=== PATIENT | female | born 1960 | race African-American/Black ===

== ENCOUNTER 2017-10-15 08:54 | Outpatient (CLI) | payer OTHER ==
--- NOTE | 2017-10-15 12:17 | MRI ---
EXAM: MR ANGIOGRAM OF THE [place]: HISTORY: Dizziness. COMPARISON: None. CORRELATION: CT angiogram of the head 06/04/17. TECHNIQUE: MR angiogram of the [place] was performed in the axial plane utilizing 3D [id number]-[id number] marcelo ging. Maxim-intensity projection images were submitted for interpretation. FINDINGS: The distal cervical carotid arteries have symmetric flow-related signal. The intracranial carotid ar teries also have symmetric flow-related signal. Anterior Circulation: Symmetric flow-related signal in the A1 and M1 segments. Symmetric flow-related signal in the proxim al A2 segments and proximal MCA branches. Posterior Circulation: Posterior circulation demonstrates codominant vertebral arteries. Limited evaluation of both PICA ar loc origins. Nevertheless, both PICA artery origins are grossly unremarkable. Both vertebral arter ies supply a normal-appearing basilar artery. Appropriate flow-related signal. Symmetric flow-relat ed signal is in the left and right P1 segments. IMPRESSION: Unremarkable MR angiogram of the [place]. POS: [facility]
--- NOTE | 2017-10-15 12:24 | MRI ---
EXAM: MR ANGIOGRAM OF THE NECK: HISTORY: Dizziness. COMPARISON: None. CORRELATION: CT Angiogram of the neck 06/04/17. TECHNIQUE: Axial 2D and 3D flij-la-neleyp imaging was performed. Maximum-intensity projection images are submit bharath for interpretation. FINDINGS: Based on the axial 2D and 3D [id number] images, evaluation of the origin of both carotid and vert ebral arteries is limited. Visualized cervical carotid and vertebral arteries have appropriate flow-r elated signal. No significant stenosis. Maximum-intensity projection images do not demonstrate any abnormality. IMPRESSION: Unremarkable cervical carotid and vertebral arteries. There appears to be appropriate flow-related s ignal. POS: [facility]
--- NOTE | 2017-10-15 13:07 | MRI ---
MRI BRAIN WITH AND WITHOUT CONTRAST: HISTORY: 57-year-old female with C71.9, malignant neoplasm of brain, as written in the order. History provided by lead medical technologist is dizziness and right leg weakness for approximately one yea r. TECHNIQUE: Multiple sequences obtained in axial, sagittal, and coronal planes; pre and post IV injection of gado linium-based contrast agent: 20 ml of MultiHance. FINDINGS: The ventricles are normal in size and configuration. There is no restricted diffusion, abnormal intr aaxial enhancement, mass, midline shift or any other mass effect, recent intraaxial hemorrhage, or ex traaxial fluid collection. There are a few scattered punctate T2-hyperintensities in the cerebral whi te matter consistent with mild chronic ischemic white matter changes due to mild microvascular athero sclerosis. There is total opacification of the left sphenoid air cell and adjacent left posterior eth moid air cells; and near total opacification of the left maxillary sinus. Despite the given history o f malignant neoplasm of brain, there are no craniostomy changes. IMPRESSION: 1. Mild chronic ischemic white matter changes. 2. Otherwise no major pathology of the brain identified. 3. Occlusive left paranasal sinusopathy. darwin POS: [facility]
== END 2017-10-15 08:55 | disposition home or self-care (01) ==
LOC: MRI 08:54
PROVIDERS: ATTEND Neurological Surgery
DX: C71.9 Malignant neoplasm of brain, unspecified (principal); R42 Dizziness and giddiness; G93.89 Other specified disorders of brain; J32.8 Other chronic sinusitis
CPT/HCPCS: 70544; 70547; 70553

== ENCOUNTER 2018-01-06 10:17 | Emergency (ER) | payer OTHER ==
[2018-01-06 11:53] LABS: #Lymphocytes 1.5 thou/uL (1.20-3.40); #Monocytes 0.4 thou/uL (0.11-0.59); #Neutrophils 7.2 thou/uL (1.40-6.50); %Basophils 0.2 % (0.0-1.0); %Eosinophils 0.5 % (0.0-10.0); %Lymphocytes 16.6 % (21.0-51.0); %Monocytes 4.5 % (0.0-10.0); %Neutrophils 78.2 % (42.0-75.0); Hemoglobin 10.9 g/dL (12.0-16.0); Mean Corpuscular HGB CONC 30.8 g/dL (32.0-36.0); Mean Corpuscular Hemoglobin 26.5 pg (27.0-31.0); Mean Corpuscular Volume 85.9 fl (81.0-99.0); Mean Platelet Volume 8.8 fL (7.4-10.4); Platelet Count 222 thou/uL (130-400); RBC Distribution Width 13.6 % (11.5-14.5); Red Blood Cell (RBC) Count 4.13 mill/uL (4.20-5.40); White Blood Cell (WBC) Count 9.2 thou/uL (4.8-10.8)
[2018-01-06 12:13] LABS: ALT (SGPT) 12 U/L (8-55); AST (SGOT) 16 U/L (5-34); Albumin 4.1 g/dL (3.5-5.0); Alkaline Phosphatase 76 U/L (40-150); Anion Gap 13 mmol/L (10-20); BUN (Urea Nitrogen) 19 mg/dL (9.8-20.1); Bilirubin, Total 0.3 mg/dL (0.2-1.2); CK (CPK) 74 U/L (29-168); Calc. Creatinine Clearance 0 mL/min (70-130); Calcium 9.1 mg/dL (7.8-10.44); Carbon Dioxide 21 mmol/L (22-29); Chloride 107 mmol/L (98-107); Estimated GFR-MDRD 63; Globulin 2.9 g/dL (2.4-3.5); Glucose 111 mg/dL (70-105); Potassium 3.8 mmol/L (3.5-5.1); Sodium 137 mmol/L (136-145)
[2018-01-06 12:17] LABS: CKMB 0.9 ng/mL (0-6.6); Troponin I Less than 0.010 ng/mL (< 0.028)
== END 2018-01-06 15:25 | disposition home or self-care (01) ==
LOC: ERS 10:17
DX: E86.0 Dehydration (principal); M79.7 Fibromyalgia; I10 Essential (primary) hypertension; Z79.899 Other long term (current) drug therapy
CPT/HCPCS: 36415; 80053; 82553; 84484; 85025; 99284

== ENCOUNTER 2018-06-09 08:17 | Outpatient (CLI) | payer OTHER ==
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
== END 2018-06-09 08:18 | disposition home or self-care (01) ==
LOC: TBSIIMAG 08:17
PROVIDERS: ATTEND Specialist
DX: M51.17 Intervertebral disc disorders with radiculopathy, lumbosacral region (principal)
CPT/HCPCS: 72148

== ENCOUNTER 2018-09-25 07:37 | Outpatient (CLI) | payer OTHER ==
--- NOTE | 2018-09-25 08:56 | MRI ---
MRI OF LEFT SHOULDER PERFORMED WITHOUT CONTRAST ENHANCEMENT: Date: 09/25/18 HISTORY: Left shoulder pain, limited range of motion. FINDINGS: There are some mild AC joint hypertrophic changes present. The supra and infraspinatus tendons appear fairly unremarkable. The only area of abnormality is a tiny fluid density signal change seen near th e outer bursal fibers of the supraspinatus tendon which could represent a tiny interstitial tear. The re is a small amount of fluid in the subacromial/subdeltoid bursa. The subscapularis muscle and tendon appear intact. Biceps tendon is normal in position. No labral abn ormalities are appreciated. The inferior glenohumeral ligament is intact. IMPRESSION: 1. Very mild AC joint hypertrophic changes with a slightly laterally downsloping acromion. 2. Tiny focus of fluid density signal change seen within the substance of the supraspinatus tendon a nd its attachment. This is closer to the outer bursal fibers. It would be suggestive of a tiny inters titial tear. 3. Trace fluid or edema change in the subacromial/subdeltoid recess. This could indicate a minimal b ursitis. POS: [facility]
== END 2018-09-25 07:38 | disposition home or self-care (01) ==
LOC: BICMRI 07:37
PROVIDERS: ATTEND Orthopaedic Surgery
DX: M25.512 Pain in left shoulder (principal); R93.7 Abnormal findings on diagnostic imaging of other parts of musculoskeletal system

== ENCOUNTER 2018-10-08 10:11 | Day surgery (SDC) | payer OTHER ==
[2018-10-07 12:49] VITALS: BMI 36.8
[2018-10-08 11:27] LABS: Anion Gap 13 mmol/L (10-20); BUN (Urea Nitrogen) 13 mg/dL (9.8-20.1); Calc. Creatinine Clearance 102 mL/min (70-130); Calcium 9.9 mg/dL (7.8-10.44); Carbon Dioxide 26 mmol/L (22-29); Chloride 104 mmol/L (98-107); Estimated GFR-MDRD 77; Glucose 93 mg/dL (70-105); Potassium 3.4 mmol/L (3.5-5.1); Sodium 140 mmol/L (136-145)
[2018-10-08] MEDS ORDERED: CEFAZOLIN 1 GM VIAL ONE (12:42)
[2018-10-08] MEDS ORDERED: Sodium Chloride 0.9% 100 ML ONE (12:42)
[2018-10-08] MEDS ORDERED: Bupivacaine HCl 0.5%/Epinephrine 1:200,000/PF 30 ml Vial ONE (14:14)
[2018-10-08] MEDS ORDERED: Fentanyl 100 MCG/2 ML VIAL ONE (14:39)
[2018-10-08] MEDS ORDERED: diphenhydrAMINE 50 MG/ML VIAL ONE (15:13)
[2018-10-08] MEDS ORDERED: PHENYLEPHRINE-NS 100 MCG/ML 10 ML SYRINGE ONE (15:13)
[2018-10-08] MEDS ORDERED: Ondansetron PF 4 MG/2 ML Vial ONE (15:13)
[2018-10-08] MEDS ORDERED: PROPOFOL 200 MG/20 ML VIAL ONE (15:13)
[2018-10-08] MEDS ORDERED: Lidocaine 1% PF 5 ML VIAL ONE (15:13)
[2018-10-08] MEDS ORDERED: Metoclopramide HCl 10 MG/2 ML VIAL ONE (15:13)
[2018-10-08] MEDS ORDERED: Ketorolac Tromethamine 30 MG/ML VIAL ONE (15:13)
[2018-10-08] MEDS ORDERED: Dexamethasone 20 MG/5 ML VIAL ONE (15:13)
[2018-10-08] MEDS ORDERED: Midazolam HCl 2 mg/2 ml Vial ONE (15:18)
[2018-10-08] MEDS ORDERED: Lidocaine 2% 11 ML SYR ONE ×2 (15:22→15:25)
[2018-10-08] MEDS ORDERED: Lidocaine 2% PF 5 ML VIAL ONE (15:22)
[2018-10-08] MEDS ORDERED: Sodium Chloride 0.9% 0 ML ONE (15:23)
[2018-10-08] MEDS ORDERED: PROPOFOL 20 ML ONE ×4 (16:15→17:15)
--- NOTE | 2018-10-08 17:57 | RAD ---
RADIOGRAPH THORACIC SPINE 1 VIEW: 10/08/18 HISTORY: Spinal cord stimulator placement in 58-year-old female. FINDINGS: Single small field of view fluoroscopic spot image obtained with C-arm demonstrates double spinal cor d stimulator leads ascending the lower thoracic spine, with distal tip at the mid thoracic spine. IMPRESSION: Dorsal column spinal cord stimulator in the thoracic spine. POS: [facility]
[2018-10-08] MEDS ORDERED: HYDROcodone/Acetaminophen 10/325 mg Tablet ONE (17:59)
--- NOTE | 2018-10-09 00:11 | OP ---
DATE OF PROCEDURE: 10/08/2018 PREOPERATIVE DIAGNOSES: 1. Chronic pain syndrome. 2. Lumbar radiculopathy. POSTOPERATIVE DIAGNOSES: 1. Chronic pain syndrome. 2. Lumbar radiculopathy. PROCEDURES PERFORMED: 1. Spinal cord stimulator lead implant x2. 2. Spinal cord stimulator generator implant. 3. Fluoroscopy. 4. Programming. ESTIMATED BLOOD LOSS: None. DESCRIPTION OF PROCEDURE: The patient was taken to the procedure room and placed prone on the operating room table. A time-out was performed. The patient's back was prepped with ChloraPrep and sterile drapes were applied. Using fluoroscopy, we located the interspace of T11-T12. We anesthestized the skin above this with 0.5% Marcaine with epinephrine. We then used a 10 blade scalpel to make an incision and blunt dissected this down to fascia. We used a 14-gauge RX Coude needle and inserted this in a paramedian technique to the T11-T12 interspinous ligament. We had lost resistance to air to achieve access to the epidural space. Aspiration was negative for heme. Aspiration was negative for CSF. We threaded the lead in the midline dorsal epidural space up to the bottom of T7. A contralateral lead was placed in the exact same fashion on the other side. Stimulation was performed with the patient awake and the patient was noted paresthesia in all pain areas. The needles were removed and also under continuous fluoro to leave the leads in place, anchors were placed over the leads and clipped in place. 2-0 suture was used to affix the anchors to fascia. A horizontal incision was made in the lower buttock after local anesthetic was administered to the skin. This was blunt dissected down under Javier's fascia and its pocket was made superior and inferior to this. Tunneling device was used to make a tunnel between the 2 pockets. The leads were placed through the tunneling device and brought to the battery pocket. The leads were connected to the battery and torqued down. All impedances were checked, which were all good. The battery was then placed inside the pocket. The fascial layer was approximated using 0 Vicryl suture in a simple interrupted fashion. We then used evelia to approximate the skin and Dermabond was placed a barrier dressing. Further dressing with Telfa and 4x4s were placed as well. The patient was taken to the PACU under stable condition without any apparent complications noted at this time. Job ID: [id number]
--- NOTE | 2018-10-09 21:02 | EKG ---
Test Reason : PREOP Blood Pressure : / mmHG Vent. Rate : 070 BPM Atrial Rate : 070 BPM P-R Int : 174 ms QRS Dur : 086 ms QT Int : 412 ms P-R-T Axes : 053 053 028 degrees QTc Int : 444 ms Normal sinus rhythm Nonspecific T wave abnormality Abnormal ECG No previous ECGs available Confirmed by Andry MORALES ([id number]) on 10/09/2018 9:02:40 PM Referred By: DENIS Confirmed By:Andry MORALES
== END 2018-10-08 18:45 | disposition home or self-care (01) ==
LOC: SDC 10:11
PROVIDERS: ATTEND Specialist
PROC: 0JH70DZ Insertion of Multiple Array Stimulator Generator into Back Subcutaneous Tissue and Fascia, Open Approach (ICD-10-PCS; principal; 2018-10-08)
PROC: 00HU3MZ Insertion of Neurostimulator Lead into Spinal Canal, Percutaneous Approach (ICD-10-PCS; principal; 2018-10-08)
DX: G89.4 Chronic pain syndrome (principal); M54.16 Radiculopathy, lumbar region; Z79.51 Long term (current) use of inhaled steroids; Z79.899 Other long term (current) drug therapy; Z88.5 Allergy status to narcotic agent; Z91.010 Allergy to peanuts; Z91.041 Radiographic dye allergy status
CPT/HCPCS: 36415; 72020; 76000; 80048; 93005; 93010; C1767; J0670; J0690; J1100; J1200; J1885; J2001; J2250; J2405; J2704; J2765; J3010; J3490; J7050

== ENCOUNTER 2018-12-24 10:22 | Day surgery (SDC) | payer OTHER ==
[2018-12-23 12:34] VITALS: BMI 36.3
[2018-12-24] MEDS ORDERED: Bupivacaine HCl 0.5%/Epinephrine 1:200,000/PF 30 ml Vial ONE (12:08)
[2018-12-24] MEDS ORDERED: PROPOFOL 200 MG/20 ML VIAL ONE (12:17)
[2018-12-24] MEDS ORDERED: Midazolam HCl 2 mg/2 ml Vial ONE (12:24)
[2018-12-24] MEDS ORDERED: Fentanyl 100 MCG/2 ML VIAL ONE (12:24)
[2018-12-24] MEDS ORDERED: Propofol 500 MG/50 ML VIAL ONE (13:29)
[2018-12-24] MEDS ORDERED: Morphine 2 MG/ML SYRINGE ONE (14:41)
--- NOTE | 2018-12-24 20:46 | OP ---
DATE OF PROCEDURE: 12/24/2018 DIRECT MARKETING ANALYST: None. PREOPERATIVE DIAGNOSES: 1. Chronic pain syndrome. 2. Lumbar radiculopathy. POSTOPERATIVE DIAGNOSES: 1. Chronic pain syndrome. 2. Lumbar radiculopathy. PROCEDURE PERFORMED: Spinal cord stimulator generator exchange/replacement. SPECIMENS REMOVED: Spinal cord stimulator proclaimed generator intact and sent to the company for analysis. ESTIMATED BLOOD LOSS: Zero. REPORT OF OPERATION: The patient was taken to the operating room and placed prone on the operating room table. A time-out was performed. We prepped the back with ChloraPrep and sterile drapes were applied. We anesthetized the skin above the pocket with 0.5% Marcaine with epinephrine. We made an incision with a 10 blade scalpel and blunt dissected this down to the pocket. We opened the pocket using blunt dissection. The battery was removed and inspected. We then used the torque wrench to loosen the leads and took the leads out. We placed the old battery in a biohazard bag and sent that for analysis with the company. A new battery was then opens and attached to the leads. The leads were affixed to the battery using a torque wrench. Impedances were checked which were all good. We inserted the battery in the pocket and started stimulation with the patient awake. The patient did not know any shock-like sensations around her battery pocket like she was with the old battery. The patient noted paresthesia in all of her pain areas with good coverage. We then approximated the pocket scar tissue with 2-0 Vicryl suture using a simple interrupted stitch. Fascial layers were approximated with 2-0 Vicryl suture using simple interrupted stitches and then a 3-0 repeat Vicryl was used as a subcuticular stitch. Dermabond was placed over this and allowed to dry and the patient was taken to the recovery room under stable condition without any apparent complications noted at this time. Job ID: [id number]
== END 2018-12-24 15:25 | disposition home or self-care (01) ==
LOC: SDC 10:22
PROVIDERS: ATTEND Specialist
PROC: 0JH70DZ Insertion of Multiple Array Stimulator Generator into Back Subcutaneous Tissue and Fascia, Open Approach (ICD-10-PCS; principal; 2018-12-24)
DX: G89.4 Chronic pain syndrome (principal); M51.17 Intervertebral disc disorders with radiculopathy, lumbosacral region; M47.812 Spondylosis without myelopathy or radiculopathy, cervical region; T85.193A Other mechanical complication of implanted electronic neurostimulator, generator, initial encounter; I10 Essential (primary) hypertension; F32.9 Major depressive disorder, single episode, unspecified; M79.7 Fibromyalgia; K21.9 Gastro-esophageal reflux disease without esophagitis; G25.81 Restless legs syndrome; Z79.899 Other long term (current) drug therapy; Z88.5 Allergy status to narcotic agent; Z91.041 Radiographic dye allergy status; Z91.010 Allergy to peanuts
CPT/HCPCS: 76000; C1767; J0670; J2250; J2270; J2704; J3010

== ENCOUNTER 2019-06-22 12:21 | Outpatient (CLI) | payer OTHER ==
--- NOTE | 2019-06-22 15:02 | MRI ---
EXAM: MRI Lumbar Spine WO Con PROVIDED CLINICAL HISTORY: Lumbar radiculopathy COMPARISON: 06/09/2018 FINDINGS: 5 lumbar-type vertebral bodies are assumed. Lumbar alignment appears normal. Vertebral body heights a ppear preserved. No focal concerning regional marrow signal abnormality is evident. Conus medullary is is normal in signal and terminates at an appropriate level. At L1-2, there is no significant central canal or foraminal narrowing apparent. At L2-3, there is no significant central canal or foraminal narrowing apparent. At L3-4, there is no significant central canal or foraminal narrowing apparent. At L4-5, there is a broad-based disc bulge and bilateral facet arthritis. There is mild central canal stenosis. No significant foraminal narrowing apparent. At L5-S1, there is a 1.1 cm greatest transverse dimension left paracentral and subarticular disc nirav iation which produces mass effect upon the left thecal sac and is inseparable from the traversing left-sided nerve roots. This is superimposed upon mild broad-based disc bulge. Bilateral facet arthri tis is again seen. There is no significant foraminal narrowing apparent. IMPRESSION: Interval disc extrusion at L5-S1 as above.
== END 2019-06-22 12:22 | disposition home or self-care (01) ==
LOC: MRI 12:21
PROVIDERS: ATTEND Nurse Practitioner Family
DX: M51.17 Intervertebral disc disorders with radiculopathy, lumbosacral region (principal); M51.16 Intervertebral disc disorders with radiculopathy, lumbar region
CPT/HCPCS: 72148

== ENCOUNTER 2019-08-25 13:11 | Outpatient (CLI) | payer OTHER ==
--- NOTE | 2019-08-25 17:01 | MRI ---
LUMBAR SPINE MRI WITHOUT CONTRAST: 08/25/19 COMPARISON: 06/22/19 HISTORY: Low back pain and left leg pain. TECHNIQUE: Multiplanar and multisequence MR imaging of the lumbar spine obtained without contrast. FINDINGS: The sagittal STIR imaging demonstrates no focal area of osseous marrow edema. On the basis of five yu mbar type vertebral bodies, the conus medullaris terminates at the T12-L1 level. T12-L1: Mild bilateral facet hypertrophy. Intervertebral disc height and signal intensity within norm al limits but no significant central canal or neural foraminal stenosis. L1-2: Mild bilateral facet hypertrophy. Intervertebral disc height and signal intensity within normal limits but no central canal or neural foraminal stenosis. L2-3: Mild bilateral facet hypertrophy. No significant central canal and neural foraminal stenosis. L3-4: Intervertebral disc height and signal intensity within normal limits with no significant centra l canal or neural foraminal stenosis. L4-5: There is bilateral facet hypertrophy and hypertrophy of the ligamentum flavum. There is disc de siccation and minimal disc bulge with no significant central canal or neural foraminal stenosis. L5-S1: There is disc space narrowing and disc desiccation. There is a small central/left paracentral disc protrusion causing a mild degree of central canal stenosis and a mild/moderate degree of left la teral recess stenosis. This disc pathology has markedly decreased in conspicuity when compared to the prior examination at which time there was a large disc extrusion with prominent left lateral recess stenosis. There is mild facet hypertrophy with mild bilateral neural foraminal stenosis. The visuali zed retroperitoneal structures appear grossly unremarkable. IMPRESSION: There is a small central/left paracentral disc protrusion causing a degree of central canal and left lateral recess stenosis at L5-S1. The findings are markedly improved when compared to the prior exami nation at which time there was a prominent disc extrusion in this region. POS: [facility]
== END 2019-08-25 13:12 | disposition home or self-care (01) ==
LOC: MRI 13:11
PROVIDERS: ATTEND Specialist
DX: M51.17 Intervertebral disc disorders with radiculopathy, lumbosacral region (principal); M48.07 Spinal stenosis, lumbosacral region
CPT/HCPCS: 72148

== ENCOUNTER 2019-11-02 16:16 | Outpatient (CLI) | payer OTHER ==
--- NOTE | 2019-11-04 12:41 | MMO ---
Bilateral MAMMO Bilat Screen [facility]. CLINICAL HISTORY: Patient is 59 years old and is seen for screening. The patient has the following family history of breast cancer: mother. The patient has no personal history of cancer. VIEWS: The views performed were: bilateral craniocaudal with tomosynthesis and bilateral mediolateral oblique with tomosynthesis. FILMS COMPARED: The present examination has been compared to prior imaging studies performed at [facility] on 08/02/2016, and at [facility] on 11/06/2011 and 01/07/2013. This study has been interpreted with the assistance of computer-aided detection. MAMMOGRAM FINDINGS: There are scattered fibroglandular densities. Benign calcifications are noted bilaterally. There are no suspicious masses, suspicious calcifications, or new areas of architectural distortion. IMPRESSION: THERE IS NO MAMMOGRAPHIC EVIDENCE OF MALIGNANCY. A ROUTINE FOLLOW-UP MAMMOGRAM IN 1 YEAR IS RECOMMENDED. THE RESULTS OF THIS EXAM WERE SENT TO THE PATIENT. ACR BI-RADS Category 2 - Benign finding MAMMOGRAPHY NOTE: 1. A negative mammogram report should not delay a biopsy if a dominant of clinically suspicious mass is present. 2. Approximately 10% to 15% of breast cancers are not detected by mammography. 3. Adenosis and dense breasts may obscure an underlying neoplasm. Reported by: SHANIA STINSON MD Electonically Signed: [id number]
== END 2019-11-02 16:17 | disposition home or self-care (01) ==
LOC: BICMAMMO 16:16
PROVIDERS: ATTEND Family Medicine
DX: Z12.31 Encounter for screening mammogram for malignant neoplasm of breast (principal); Z80.3 Family history of malignant neoplasm of breast
CPT/HCPCS: 77063; 77067

== ENCOUNTER 2020-01-27 06:13 | Outpatient (CLI) | payer OTHER ==
[2020-01-27 17:35] LABS: Hemoglobin 12.3 g/dL (12.0-16.0); Mean Corpuscular HGB CONC 31.7 g/dL (32.0-36.0); Mean Corpuscular Hemoglobin 27.5 pg (27.0-31.0); Mean Corpuscular Volume 86.9 fL (78.0-98.0); Mean Platelet Volume 10.1 fL (7.4-10.4); Platelet Count 223 thou/uL (130-400); RBC Distribution Width 13.6 % (11.5-14.5); Red Blood Cell (RBC) Count 4.47 mill/uL (4.20-5.40); White Blood Cell (WBC) Count 8.7 thou/uL (4.8-10.8)
[2020-01-27 17:58] LABS: Anion Gap 11 mmol/L (10-20); BUN (Urea Nitrogen) 13 mg/dL (9.8-20.1); Calc. Creatinine Clearance 0 mL/min (70-130); Calcium 10.1 mg/dL (7.8-10.44); Carbon Dioxide 30 mmol/L (22-29); Chloride 102 mmol/L (98-107); Estimated GFR-MDRD 79; Glucose 117 mg/dL (70-105); Sodium 140 mmol/L (136-145)
[2020-01-28 11:43] LABS: SARS-CoV-2 MS2 Positive; SARS-CoV-2 N Gene Negative; SARS-CoV-2 S Gene Negative; SARS-CoV-2 orf1ab Negative
== END 2020-01-27 06:14 | disposition home or self-care (01) ==
LOC: LABBT 06:13
PROVIDERS: ATTEND Neurological Surgery
DX: Z01.812 Encounter for preprocedural laboratory examination (principal); Z11.59 Encounter for screening for other viral diseases; M54.16 Radiculopathy, lumbar region
CPT/HCPCS: 80048; 85027; 87635; U0003

== ENCOUNTER 2020-01-31 05:34 | Day surgery (SDC) | payer OTHER ==
[2020-01-31] MEDS ORDERED: Fentanyl 100 MCG/2 ML VIAL ONE ×3 (06:34→09:15)
[2020-01-31] MEDS ORDERED: Midazolam HCl 2 mg/2 ml Vial ONE (07:09)
[2020-01-31] MEDS ORDERED: HYDROmorphone 2 MG/ML VIAL ONE ×2 (08:03→09:40)
[2020-01-31] MEDS ORDERED: SUGAMMADEX SODIUM 200 MG/2 ML VIAL ONE (08:44)
--- NOTE | 2020-01-31 09:15 | OP ---
DATE OF PROCEDURE: 01/31/2020 CLAY CASTER: Jenifer Sauceda PA-C PROCEDURES PERFORMED: Left L5-S1 laminectomy, facetectomy, diskectomy, interbody arthrodesis, intervertebral biomechanical device, local morselized autograft, demineralized bone matrix, posterolateral arthrodesis, pedicle screw instrumentation L5-S1. DESCRIPTION OF PROCEDURE: The patient was brought to the operating room and intubated. She was rolled in a prone position on gel-filled chest rolls. An incision was made exposing L5 and S1, and the level was confirmed by x-ray. We performed left L5-S1 laminectomy, facetectomy, foraminotomy, and diskectomy. We completely decompressed left S1 and left L5. The bony endplates were then decorticated for the purpose of arthrodesis L5-S1. An appropriate-sized intervertebral biomechanical PEEK device was brought into the field. It was filled with demineralized bone matrix, local morselized autograft, and tapped in place securely at L5-S1. Next, pedicle screws were placed at left L5 and left S1 using lateral fluoroscopic guidance and positioning was confirmed by x-ray. De was secured between the screws, connected by nuts, which were final tightened. The wound was then extensively irrigated, and MAC hemostasis was secured. A combination of demineralized bone matrix and local morselized autograft was laid over the lamina and posterolateral surfaces for the purpose of arthrodesis. Vancomycin powder was applied, and the wound was then closed in anatomic layers. Job ID: [id number]
[2020-01-31] MEDS ORDERED: PROPOFOL 200 MG/20 ML VIAL ONE (11:35)
[2020-01-31] MEDS ORDERED: Lidocaine 1% PF 5 ML VIAL ONE (11:35)
[2020-01-31] MEDS ORDERED: Rocuronium Bromide 10 MG/ML (10ML VIAL) ONE (11:35)
[2020-01-31] MEDS ORDERED: Glycopyrrolate 0.2 MG/ML 5 ML SYRINGE ONE (11:35)
[2020-01-31] MEDS ORDERED: Dexamethasone 20 MG/5 ML VIAL ONE (11:35)
[2020-01-31] MEDS ORDERED: Ondansetron PF 4 MG/2 ML Vial ONE (11:35)
[2020-01-31] MEDS ORDERED: PHENYLEPHRINE-NS 100 MCG/ML 10 ML SYRINGE ONE (11:35)
[2020-01-31] MEDS ORDERED: Bisacodyl 10 MG SUPP PR PRN (12:09)
[2020-01-31] MEDS ORDERED: Promethazine HCl 25 MG/ML VIAL IM PRN (12:09)
[2020-01-31] MEDS ORDERED: Mag-Al 1200 mg/1200 mg/30 ML UDCUP PO PRN (12:09)
[2020-01-31] MEDS ORDERED: Milk Of Magnesia 30 ML UDCUP PO PRN (12:09)
[2020-01-31] MEDS ORDERED: HYDROcodone/Acetaminophen 10/325 mg Tablet PO PRN ×2 (12:09)
[2020-01-31] MEDS ORDERED: Promethazine 25 MG TAB PO PRN (12:09)
[2020-01-31] MEDS ORDERED: traMADol HCl 50 MG TAB PO PRN ×2 (12:09)
[2020-01-31] MEDS ORDERED: Promethazine HCl 12.5 MG SUPP PR PRN (12:09)
[2020-01-31] MEDS ORDERED: Morphine 2 MG/ML SYRINGE SLOW IVP PRN (12:09)
[2020-01-31] MEDS ORDERED: Ondansetron PF 4 MG/2 ML Vial IVP PRN (12:16)
[2020-01-31] MEDS ORDERED: Fioricet 325/50/40 mg Tablet PO PRN (12:19)
[2020-01-31] MEDS ORDERED: oxyCODONE/Acetaminophen 5 mg/325 mg Tablet PO PRN (12:22)
[2020-01-31 13:23] VITALS: BMI 35.0
[2020-01-31] MEDS: oxyCODONE/Acetaminophen 5 mg/325 mg Tablet PO PRN ×2 (13:57→21:25)
[2020-01-31] MEDS: CEFAZOLIN 2 GM in Premix Bag 1 BAG IVPB SCH ×2 (13:57→21:26)
[2020-01-31] MEDS: Sodium Chloride 0.9% 1,000 ML IV SCH (14:36)
[2020-01-31] MEDS: tiZANidine HCl 4 MG TAB PO PRN ×2 (15:57→21:25)
--- NOTE | 2020-01-31 16:08 | EKG ---
Test Reason : PREOP Blood Pressure : / mmHG Vent. Rate : 072 BPM Atrial Rate : 072 BPM P-R Int : 168 ms QRS Dur : 088 ms QT Int : 416 ms P-R-T Axes : 047 052 030 degrees QTc Int : 455 ms Normal sinus rhythm Normal ECG When compared with ECG of 08-OCT-2018 12:39, No significant change was found Confirmed by MARGARITA HAHN, DR. Gage ([id number]) on 01/31/2020 4:07:43 PM Referred By: ANILA Confirmed By:DR. Too AVILA MD
[2020-01-31] MEDS: Morphine 4 MG/ML VIAL SLOW IVP PRN ×2 (17:50→18:55)
[2020-01-31] MEDS: Pregabalin 75 MG CAP PO SCH (20:13)
[2020-01-31] MEDS: DULoxetine 60 MG CAP PO SCH (20:14)
[2020-01-31] MEDS: Cyclobenzaprine 10 MG TAB PO SCH (20:14)
[2020-02-01] MEDS: Morphine 4 MG/ML VIAL SLOW IVP PRN ×2 (00:06→06:53)
[2020-02-01] MEDS: oxyCODONE/Acetaminophen 5 mg/325 mg Tablet PO PRN ×3 (03:38→17:39)
[2020-02-01] MEDS: tiZANidine HCl 4 MG TAB PO PRN ×2 (03:39→16:17)
--- NOTE | 2020-02-01 06:12 | PRG ---
DATE OF SERVICE: 02/01/2020 SUBJECTIVE: The patient is postoperative day #1, status post L5-S1 diskectomy and fusion. Overnight, the patient has had difficulty mobilizing secondary to pain. She reports the pain is mostly in her low back with spasms, some numbness in the left proximal leg. She did have some numbness prior to surgery and this is relatively unchanged. She denies any changes in her strength and has had no bowel or bladder issues. OBJECTIVE: GENERAL: On exam, the patient awakens easily. She is in no acute distress. VITAL SIGNS: Her vital signs are stable. She has been afebrile overnight. SKIN: Her incision is clean, dry, and intact. EXTREMITIES: She is moving her legs easily in the bed. PLAN: We will plan to continue to work on pain control measures and also mobilizing the patient with the assistance of PT. I anticipate the patient will improve over the next day or two and will again work on mobilizing to home. Job ID: [id number]
[2020-02-01] MEDS: Sodium Chloride 0.9% 1,000 ML IV SCH ×2 (06:42→15:38)
[2020-02-01] MEDS ORDERED: Dexamethasone 4 mg/ml Vial SLOW IVP SCH (08:00)
[2020-02-01] MEDS: Fluticasone Propionate Nasal Spray 16 gm Bottle NASAL SCH (08:42)
[2020-02-01] MEDS: Triamterene/Hydrochlorothiazide 37.5 mg/25 mg Tablet PO SCH (08:43)
[2020-02-01] MEDS: Pregabalin 75 MG CAP PO SCH (20:42)
[2020-02-01] MEDS: DULoxetine 60 MG CAP PO SCH (20:43)
[2020-02-01] MEDS: Cyclobenzaprine 10 MG TAB PO SCH (20:43)
[2020-02-01] MEDS ORDERED: Acetaminophen 325 MG TAB PO SCH (20:45)
[2020-02-02] MEDS: oxyCODONE/Acetaminophen 5 mg/325 mg Tablet PO PRN ×2 (01:23→09:20)
[2020-02-02] MEDS: Sodium Chloride 0.9% 1,000 ML IV SCH (04:00)
[2020-02-02] MEDS: tiZANidine HCl 4 MG TAB PO PRN (05:44)
[2020-02-02] MEDS: Morphine 4 MG/ML VIAL SLOW IVP PRN (06:35)
[2020-02-02] MEDS ORDERED: Dexamethasone 4 mg/ml Vial SLOW IVP SCH (07:00)
--- NOTE | 2020-02-02 07:10 | PRG ---
DATE OF SERVICE: 02/02/2020 SUBJECTIVE: The patient is now postoperative day #2, status post L5-S1 decompression and fusion. She continues to be quite bothered by her left leg pain. It appears to be most bothersome in the left buttocks and the left proximal leg. She also has some weakness now which is mild in the left foot with dorsiflexion. She has still been ambulating with Physical Therapy and urinating without any difficulty. She reports the one dose of steroids yesterday has provided some short-term benefit. OBJECTIVE: GENERAL: On exam this morning patient is awake, alert, in no acute distress. NEUROLOGICAL: She has some subtle weakness in the left foot with dorsiflexion. She is normoreflexive. Good strength in the remainder of the extremities. SKIN: Her incision is clean, dry, and intact. PLAN: We will plan to check a noncontrast CT of the lumbar spine. I will also restart her steroid, Decadron 3 mg IV t.i.d. We will discuss with Dr. Disla as well. Job ID: [id number]
--- NOTE | 2020-02-02 09:04 | CT ---
CT lumbar spine noncontrast: DATE: 02/02/2020 HISTORY: 59-year-old female with low back pain and left lumbar radiculopathy status post lumbar surgery 2 days ago. FINDINGS: 5 lumbar-type vertebrae. Vertebral body heights are maintained. Spinal cord dorsal column stimulator leads enter the spinal canal at approximately T11-T12, just outside of the levels covered. No high-grade disc space narrowing at any level. One or 2 mm minimal anterolisthesis L5 on S1. No major spondylolisthesis. No major pathology identified at T12-L1, L1-2, L2-3, or L3-4. L4-5: Mild disc bulge. Moderate ligamentum flavum thickening. Mild bony central spinal canal stenosis . Mild bilateral neural foraminal stenosis. L5-S1: Metallic markers within the disc space on the left side. Left pedicle screws at L5 and S1 with vertical interlocking rogelio. Medial edge of left L5 pedicle screw is at far lateral edge of left lateral recess. New left inferior facetectomy of L5. Midline laminectomy. The hardware causes streak artifact, obscuring contents of spinal canal. There may or may not be soft tissue density material within the spinal canal. IMPRESSION: Status post laminectomy, left inferior facetectomy, left pedicle screw placement and interbody cage p lacement, at L5-S1. Streak artifact from the hardware makes it difficult to evaluate the contents of the spinal canal at that level.
--- NOTE | 2020-02-02 09:15 | PRG ---
DATE OF SERVICE: 02/02/2020 SUBJECTIVE: I visited Ms. Frank. She has had left leg pain and some dysesthesias in the foot since her uncomplicated lumbar fusion surgery. This was responsive to steroid yesterday. A noncontrast CT is generally satisfactory. IMPRESSION AND PLAN: Transient left-sided radiculitis, will likely resolve. We will continue with steroids and anticipate discharge later today or tomorrow. Job ID: [id number]
[2020-02-02] MEDS: Fluticasone Propionate Nasal Spray 16 gm Bottle NASAL SCH (09:21)
[2020-02-02] MEDS: Triamterene/Hydrochlorothiazide 37.5 mg/25 mg Tablet PO SCH (09:25)
[2020-02-02 11:10] VITALS: BP 93/60; TEMP 98.2
--- NOTE | 2020-02-02 13:23 | DIS ---
DATE OF ADMISSION: 01/31/2020 DATE OF DISCHARGE: 02/02/2020 The patient is a 59-year-old female, recently evaluated in our office for L5-S1 degenerative disk disease. She underwent L5-S1 diskectomy and fusion on 01/31/2020. Following the surgery, she was transitioned to the Med/Surg floor. On postoperative day #1, she developed a left leg postop radiculitis. This was treated with steroids with a bit of improvement. We checked a noncontrast CT, which showed good hardware placement and no other postsurgical issues. Her pain seemed to be well controlled with her p.o. medications, she was tolerating a regular diet, and she was voiding appropriately. She ambulated in the halls with PT without difficulty. We will plan to dismiss the patient to home. I have discussed home care precautions and she has been provided with scripts for Keflex and Medrol Dosepak. Pain Management is managing her postoperative pain medicines. Job ID: [id number]
== END 2020-02-02 12:35 | disposition home or self-care (01) ==
LOC: SDC 05:34 → SJJU 12:00 → SDC 02-02 12:35
PROVIDERS: ATTEND Neurological Surgery
PROC: 0ST40ZZ Resection of Lumbosacral Disc, Open Approach (ICD-10-PCS; principal; 2020-01-31)
PROC: 0SG30AJ Fusion of Lumbosacral Joint with Interbody Fusion Device, Posterior Approach, Anterior Column, Open Approach (ICD-10-PCS; principal; 2020-01-31)
DX: M51.17 Intervertebral disc disorders with radiculopathy, lumbosacral region (principal); Z79.899 Other long term (current) drug therapy; Z88.5 Allergy status to narcotic agent; Z91.010 Allergy to peanuts; Z91.041 Radiographic dye allergy status
CPT/HCPCS: 72131; 76000; 93005; 93010; C1713; C1768; J0690; J1100; J1170; J2001; J2250; J2270; J2405; J2704; J3010; J3370

== ENCOUNTER 2020-08-02 18:18 | Inpatient (IN) | payer OTHER ==
[2020-08-02] MEDS ORDERED: Dexamethasone 10 MG/ML VIAL ONE (19:14)
[2020-08-02 19:28] LABS: #Eosinphils 0.1 thou/uL (0.0-0.7); #Lymphocytes 2.9 thou/uL (1.20-3.40); #Monocytes 0.5 thou/uL (0.11-0.59); #Neutrophils 2.4 thou/uL (1.40-6.50); %Basophils 0.3 % (0.0-1.0); %Eosinophils 1.4 % (0.0-10.0); %Lymphocytes 49.3 % (21.0-51.0); %Monocytes 8.5 % (0.0-10.0); %Neutrophils 40.5 % (42.0-75.0); Hemoglobin 13.9 g/dL (12.0-16.0); Mean Corpuscular HGB CONC 33.6 g/dL (32.0-36.0); Mean Corpuscular Hemoglobin 28.6 pg (27.0-31.0); Mean Corpuscular Volume 85.2 fL (78.0-98.0); Mean Platelet Volume 10.4 fL (7.4-10.4); Platelet Count 207 thou/uL (130-400); RBC Distribution Width 12.8 % (11.5-14.5); Red Blood Cell (RBC) Count 4.85 mill/uL (4.20-5.40)
[2020-08-02 19:52] LABS: ALT (SGPT) 11 U/L (8-55); AST (SGOT) 27 U/L (5-34); Albumin 4.6 g/dL (3.5-5.0); Alkaline Phosphatase 85 U/L (40-110); Anion Gap 18 mmol/L (10-20); BUN (Urea Nitrogen) 18 mg/dL (9.8-20.1); Bilirubin, Total 0.3 mg/dL (0.2-1.2); Calc. Creatinine Clearance 0 mL/min (70-130); Calcium 10.2 mg/dL (7.8-10.44); Carbon Dioxide 23 mmol/L (22-29); Chloride 100 mmol/L (98-107); Estimated GFR-MDRD 71; Globulin 4.6 g/dL (2.4-3.5); Glucose 96 mg/dL (70-105); Lipase 33 U/L (8-78); Potassium 3.4 mmol/L (3.5-5.1); Protein, Total 9.2 g/dL (6.0-8.3); Sodium 138 mmol/L (136-145)
[2020-08-02 20:06] LABS: Bacteria/HPF 4+ HPF (None Seen); Bilirubin Negative (Negative); Blood, Urine Negative (Negative); Clarity Clear (Clear); Glucose, Urine (Dipstick) Normal (Negative); Ketone, Urine Negative (Negative); Leukocyte Negative Leu/uL (Negative); Nitrite 2+ (Negative); Protein, Urine (Dipstick) Negative (Neg-Trace); RBC/HPF 0-3 HPF (0-3); Specific Gravity, Urine 1.018 (1.002-1.036); Squamous Epithelial 0-3 HPF (0-3); Urobilinogen Normal mg/dL (Less than 2); WBC/HPF 0-3 HPF (0-3)
--- NOTE | 2020-08-02 20:17 | RAD ---
Chest one view HISTORY: Dyspnea. COVID positive. FINDINGS: Cardiac silhouette and pulmonary vasculature are unremarkable. Mediastinum is midline. Pulm onary vasculature is within normal limits. Dorsal column stimulator leads project over the lower thoracic spine. Very subtle increase in parenchymal opacity at the right lung base. No evidence of pneumothorax. IMPRESSION : Minimal right lung base infiltrate, consistent with viral pneumonitis. No lobar consolidation evident .
[2020-08-02] MEDS ORDERED: Azithromycin 500 MG VIAL ONE (21:08)
[2020-08-02] MEDS ORDERED: cefTRIAXone\\ROCEPHIN 1 GM VIAL ONE (21:08)
[2020-08-02] MEDS ORDERED: Activated Charcoal/Sorbitol 25 GM/120 ML TUBE ONE (21:08)
[2020-08-02] MEDS ORDERED: Ondansetron PF 4 MG/2 ML Vial ONE (21:23)
[2020-08-02 22:18] LABS: Lactic Acid 1.7 mmol/L (0.5-2.2)
[2020-08-02] MEDS ORDERED: Acetaminophen 325 MG TAB PO PRN (23:17)
--- NOTE | 2020-08-02 23:25 | PDOC.HHP ---
Hospitalist HPI - History of Present Illness Shortness of breath History of Present Illness: 60-year-old woman with a history of hypertension, diagnosed with COVID-19 1 week ago presents to the emergency department with a complaint of progressive shortness of breath and fatigue. Patient denied any fever. She endorsed nonproductive cough and body aches. Chest x-ray in the emergency department demonstrated mild right lung base infiltrate. She has no leukocytosis. Lactic acid elevated to 2.6. D-dimer is negative. Patient noted to be tachycardic. She is tolerating room air with good oxygen saturation. UA suggest the presence of UTI. ED physician feels patient condition is deteriorating and therefore requested for hospitalization. Hospitalist ROS - Review of Systems Other: Except ss documented, all other systems reviewed and negative. - Medication Medications: Medication Instructions Recorded Confirmed Type Butalbital/Acetaminophen/Caffe 1 tab PO ASDIR PRN 10/07/18 08/03/20 History [Fioricet] Cholecalciferol (Vitamin D3) 1 tab PO DAILY 10/07/18 08/03/20 History [Vitamin D3] Cyclobenzaprine [Flexeril] 10 mg PO HS 10/07/18 08/03/20 History DULoxetine HCl 1 tab PO HS 10/07/18 08/03/20 History Fluticasone Propionate 1 - 2 spray INH DAILY 10/07/18 08/03/20 History Pregabalin [Lyrica] 1 tab PO HS 10/07/18 08/03/20 History Triamterene/Hydrochlorothiazid 1 tab PO QAM 10/07/18 08/03/20 History [Triamterene-Hctz 37.5-25 mg Cp] Amlodipine [Norvasc] 10 mg PO DAILY 08/03/20 08/03/20 History busPIRone HCl [Buspirone HCl] 15 mg PO QAM 08/03/20 08/03/20 History Hospitalist History - Past Medical History Cardiac: reports: HTN Rheumatologic: reports: Fibromyalgia - Past Surgical History Past Surgical History: reports: Hysterectomy, Tonsillectomy, Other (Orthopedic surgery) Other Surgical History: Back surgery - Family History Family History: reports: diabetes mellitus - Social History Smoking Status: Never smoker Alcohol: reports: None Drugs: reports: none Living Situation: With Family - Exam General Appearance: NAD, awake alert Eye: PERRL, anicteric sclera ENT: normocephalic atraumatic, moist mucosa Neck: supple, no JVD Heart: RRR, no murmur, normal peripheral pulses Respiratory: CTAB, no wheezes, no rales, no ronchi Gastrointestinal: soft, non-tender, non-distended, normal bowel sounds Extremities: no cyanosis, no edema Skin: normal turgor, no rashes Neurological: cranial nerve grossly intact, no weakness, no focal deficits Musculoskeletal: normal tone, normal strength Psychiatric: normal affect, normal behavior, A&O x 3 Hospitalist Results - Labs Result Diagrams: 08/02/20 19:10 08/02/20 19:10 Lab results: WBC 6.0 thou/uL (4.8-10.8) 08/02/20 19:10 Hgb 13.9 g/dL (12.0-16.0) 08/02/20 19:10 Hct 41.3 % (36.0-47.0) 08/02/20 19:10 MCV 85.2 fL (78.0-98.0) 08/02/20 19:10 Plt Count 207 thou/uL (130-400) 08/02/20 19:10 Neutrophils % 40.5 % (42.0-75.0) L 08/02/20 19:10 Sodium 138 mmol/L (136-145) 08/02/20 19:10 Potassium 3.4 mmol/L (3.5-5.1) L 08/02/20 19:10 Chloride 100 mmol/L (98-107) 08/02/20 19:10 Carbon Dioxide 23 mmol/L (22-29) 08/02/20 19:10 BUN 18 mg/dL (9.8-20.1) 08/02/20 19:10 Creatinine 0.97 mg/dL (0.6-1.1) 08/02/20 19:10 Glucose 96 mg/dL (70-105) 08/02/20 19:10 Lactic Acid 1.7 mmol/L (0.5-2.2) 08/02/20 21:53 Calcium 10.2 mg/dL (7.8-10.44) 08/02/20 19:10 Total Bilirubin 0.3 mg/dL (0.2-1.2) 08/02/20 19:10 AST 27 U/L (5-34) 08/02/20 19:10 ALT 11 U/L (8-55) 08/02/20 19:10 Alkaline Phosphatase 85 U/L (40-110) 08/02/20 19:10 Troponin I Less than 0.010 ng/mL (< 0.028) 08/02/20 19:10 Serum Total Protein 9.2 g/dL (6.0-8.3) H 08/02/20 19:10 Albumin 4.6 g/dL (3.5-5.0) 08/02/20 19:10 Lipase 33 U/L (8-78) 08/02/20 19:10 Urine Ketones Negative mg/dL (Negative) 08/02/20 19:44 Urine Blood Negative (Negative) 08/02/20 19:44 Urine Nitrite 2+ (Negative) A 08/02/20 19:44 Ur Leukocyte Esterase Negative Dianna/uL (Negative) 08/02/20 19:44 Urine RBC 0-3 HPF (0-3) 08/02/20 19:44 Urine WBC 0-3 HPF (0-3) 08/02/20 19:44 Ur Squamous Epith Cells 0-3 HPF (0-3) 08/02/20 19:44 Urine Bacteria 4+ HPF (None Seen) A 08/02/20 19:44 Hospitalist H&P A/P - Problem (1) Pneumonia due to COVID-19 virus Code(s): U07.1 - COVID-19; J12.89 - OTHER VIRAL PNEUMONIA Status: Acute (2) Essential hypertension Code(s): I10 - ESSENTIAL (PRIMARY) HYPERTENSION Status: Acute (3) UTI (urinary tract infection) Status: Acute - Plan Plan: Placed under observation. Treat Covid pneumonia with IV steroid, vitamin supplementation. Treat UTI with IV Rocephin. Follow urine culture. Check serial lactate. Hold home antihypertensives for now given that patient is currently normotensive.
[2020-08-03 00:15] VITALS: BMI 35.2
[2020-08-03 06:43] LABS: #Lymphocytes 0.9 thou/uL (1.20-3.40); #Monocytes 0.1 thou/uL (0.11-0.59); #Neutrophils 3.4 thou/uL (1.40-6.50); %Eosinophils 0.3 % (0.0-10.0); %Lymphocytes 20.4 % (21.0-51.0); %Monocytes 1.7 % (0.0-10.0); %Neutrophils 77.7 % (42.0-75.0); Hemoglobin 12.2 g/dL (12.0-16.0); Mean Corpuscular HGB CONC 32.4 g/dL (32.0-36.0); Mean Corpuscular Hemoglobin 28.2 pg (27.0-31.0); Mean Corpuscular Volume 86.9 fL (78.0-98.0); Mean Platelet Volume 10.4 fL (7.4-10.4); Platelet Count 191 thou/uL (130-400); RBC Distribution Width 12.9 % (11.5-14.5); Red Blood Cell (RBC) Count 4.34 mill/uL (4.20-5.40); White Blood Cell (WBC) Count 4.4 thou/uL (4.8-10.8)
[2020-08-03 07:03] LABS: Anion Gap 11 mmol/L (10-20); BUN (Urea Nitrogen) 17 mg/dL (9.8-20.1); Calc. Creatinine Clearance 101 mL/min (70-130); Calcium 9.3 mg/dL (7.8-10.44); Carbon Dioxide 27 mmol/L (22-29); Chloride 103 mmol/L (98-107); Estimated GFR-MDRD 83; Glucose 143 mg/dL (70-105); Potassium 3.4 mmol/L (3.5-5.1); Sodium 138 mmol/L (136-145)
[2020-08-03] MEDS: Enoxaparin Sodium 40 MG/0.4 ML SYRINGE SC SCH (08:39)
[2020-08-03] MEDS: Ascorbic Acid 500 mg Chewable Tablet PO SCH (08:39)
[2020-08-03] MEDS: Cholecalciferol 1,000 UNITS (25 MCG) TAB PO SCH (08:39)
[2020-08-03] MEDS: Zinc Sulfate 220 MG CAP PO SCH (08:39)
[2020-08-03] MEDS: Dexamethasone Sod Phosphate 6 MG in Sodium Chloride 0.9% 50 ML IVPB SCH ×2 (10:27→20:27)
[2020-08-03] MEDS ORDERED: Ondansetron PF 4 MG/2 ML Vial IVP PRN (10:48)
[2020-08-03] MEDS ORDERED: Potassium Chloride 20 MEQ TAB PO SCH (11:00)
--- NOTE | 2020-08-03 12:37 | RAD ---
EXAM: Single view of the abdomen HISTORY: Abdominal pain. Unable to pass gas or belch COMPARISON: 07/01/2017 FINDINGS: Single view of the abdomen shows a nonspecific, nonobstructive bowel gas pattern. Air is se en to the level the rectum. No suspicious calcifications are seen. Postsurgical changes are seen in the lower lumbar spine. A spinal stimulation device is seen with its tip in the midthoracic spine. Cholecystectomy clips are seen. IMPRESSION: Nonobstructive bowel gas pattern
--- NOTE | 2020-08-03 14:27 | PDOC.HOSPP ---
- Subjective Encounter Date: 08/03/20 Encounter Time: 10:00 Subjective: F/u: COVID The patient reports severe nausea. She also has abdominal pain mostly in her RUQ. SHe states it occurs sporadically and self resolves sporadically. She wants to burp, but is unable to. She also states she hasn't had a bowel movement in four days. SHe passed a little gas at 4 am She has no chest pain. She only has a mild cough - Objective Vital Signs & Weight: Vital Signs (12 hours) Temp Pulse Resp BP BP BP Pulse Ox 08/03/20 12:03 98.0 F 93 18 104/70 100 08/03/20 09:00 97.9 F 88 18 105/79 99 08/03/20 08:39 97.9 F 88 18 105/79 99 08/03/20 03:50 98 F 88 15 104/72 97 Weight Admit Weight 198 lb 9.6 oz Weight 198 lb 9.6 oz I&O: 08/02/20 08/03/20 08/04/20 06:59 06:59 06:59 Intake Total 300 Balance 300 Result Diagrams: 08/03/20 05:59 08/03/20 05:59 Hospitalist ROS - Review of Systems Constitutional: denies: fever, chills - Medication Medications: Active Medications Generic Name Dose Route Start Last Admin Trade Name Emerald PRN Reason Stop Dose Admin Ascorbic Acid 1,000 mg 08/03/20 09:00 08/03/20 08:39 Ascorbic Acid 500 Mg Chewable Tablet PO 1,000 mg DAILY JOSEF Administration Cholecalciferol 2,000 units 08/03/20 09:00 08/03/20 08:39 Cholecalciferol 1,000 Units (25 Mcg) Tab PO 2,000 units DAILY JOSEF Administration Enoxaparin Sodium 40 mg 08/03/20 09:00 08/03/20 08:39 Enoxaparin Sodium 40 Mg/0.4 Ml Syringe SC 40 mg 0900 JOSEF Administration Dexamethasone Sodium Phosphate 51.5 mls @ 103 mls/hr 08/03/20 09:00 08/03/20 10:27 6 mg/ Sodium Chloride IVPB 51.5 mls BID JOSEF Administration Ondansetron HCl 4 mg 08/03/20 10:48 08/03/20 11:33 Ondansetron Pf 4 Mg/2 Ml Vial IVP 4 mg Q6H PRN Administration Nausea/Vomiting Zinc Sulfate 220 mg 08/03/20 09:00 08/03/20 08:39 Zinc Sulfate 220 Mg Cap PO 220 mg DAILY JOSEF Administration - Exam General Appearance: NAD, awake alert Eye: PERRL, anicteric sclera ENT: normocephalic atraumatic, no oropharyngeal lesions Neck: no JVD Heart: RRR, no murmur, no gallops, no rubs Respiratory: CTAB, no wheezes, no rales, no ronchi Gastrointestinal: soft, non-tender, non-distended, normal bowel sounds Extremities: no cyanosis, no clubbing, no edema Skin: normal turgor, no lesions, no rashes Neurological: cranial nerve grossly intact, normal sensation to touch, no focal deficits, no new deficit Musculoskeletal: normal tone, normal strength, no muscle wasting Psychiatric: normal affect, normal behavior, A&O x 3 Hosp A/P - Plan Abd X ray: nonobstructive bowel gas pattern Chest X ray: minimal right lung base infiltrate This is a 60 year old female recently diagnosed with COVID who presents with nausea, vomiting, constipation, lactic acidosis Sepsis from UTI - blood cultures negative, urine culture growing E coli, continue IV ceftriaxone pending sensitivities - lactic acid has normalized Abdominal pain/nausea/vomiting - possibly viral gastroenteritis/COVID vs from UTI - abdominal Xray ordered which showed no obstruction - continue antibiotics for possible UTI - will keep NPO. Hydrate with IV fluids #COVID + #Right lung pneumonia - continue dexamethasone and ceftriaxone. Will add azithromycin Hypokalemia - potassium 3.4, replaced with IV potassium Leukopenia - likely from COVID, will monitor Lactic acidosis - resolved
[2020-08-03] MEDS ORDERED: Pantoprazole 40 MG VIAL IVP SCH (14:45)
[2020-08-03] MEDS: Dextrose 5 % And 0.9 % NaCl 1,000 ML IV SCH (15:58)
[2020-08-03] MEDS: Pantoprazole 40 MG VIAL IVP SCH (20:28)
[2020-08-03] MEDS ORDERED: cefTRIAXone\\ROCEPHIN 1 GM in Sodium Chloride 0.9% 100 ML IVPB SCH (21:00)
[2020-08-03] MEDS ORDERED: Azithromycin 500 MG in Sodium Chloride 0.9% 250 ML 250 ML IVPB SCH (22:00)
[2020-08-04] MEDS: Dextrose 5 % And 0.9 % NaCl 1,000 ML IV SCH (04:06)
[2020-08-04 06:01] LABS: Hemoglobin 11.2 g/dL (12.0-16.0); Mean Corpuscular HGB CONC 33.1 g/dL (32.0-36.0); Mean Corpuscular Hemoglobin 28.4 pg (27.0-31.0); Mean Corpuscular Volume 85.9 fL (78.0-98.0); Mean Platelet Volume 10.2 fL (7.4-10.4); Platelet Count 200 thou/uL (130-400); RBC Distribution Width 13.2 % (11.5-14.5); Red Blood Cell (RBC) Count 3.95 mill/uL (4.20-5.40); White Blood Cell (WBC) Count 10.1 thou/uL (4.8-10.8)
[2020-08-04 06:23] LABS: Anion Gap 12 mmol/L (10-20); BUN (Urea Nitrogen) 12 mg/dL (9.8-20.1); Calc. Creatinine Clearance 116 mL/min (70-130); Calcium 8.5 mg/dL (7.8-10.44); Carbon Dioxide 24 mmol/L (22-29); Chloride 108 mmol/L (98-107); Estimated GFR-MDRD Greater than 90; Glucose 141 mg/dL (70-105); Potassium 3.1 mmol/L (3.5-5.1); Sodium 141 mmol/L (136-145)
[2020-08-04] MEDS ORDERED: Potassium Chloride 20 MEQ TAB PO SCH (09:00)
[2020-08-04] MEDS: Zinc Sulfate 220 MG CAP PO SCH (09:31)
[2020-08-04] MEDS: Ascorbic Acid 500 mg Chewable Tablet PO SCH (09:31)
[2020-08-04] MEDS: Cholecalciferol 1,000 UNITS (25 MCG) TAB PO SCH (09:31)
[2020-08-04] MEDS: Pantoprazole 40 MG VIAL IVP SCH (09:33)
[2020-08-04] MEDS: Enoxaparin Sodium 40 MG/0.4 ML SYRINGE SC SCH (09:34)
[2020-08-04] MEDS ORDERED: Dexamethasone 4 MG TAB PO SCH (10:30)
--- NOTE | 2020-08-04 15:12 | PDOC.DS.DS ---
Provider - Provider Date of Admission: 08/02/20 22:37 Date of Discharge: 08/04/20 Admitting Provider: Luis Eduardo Solomon MD Primary Care Physician: Cyril Crisostomo Course - Hospital Course Hospital Course: Brief HPI: This is a 60 year old female who was diagnosed with COVID 1 week ago who presented with increasing rhinorrhea and fatigue. She also had intermittent nausea and vomiting. She was tachycardic. Chest Xray showed a minimal right lung base infiltrate. The patient was given IV ceftriaxone and azithromycin and admitted for further workup. Hospital Course: Pneumonia: the patient was continued on IV ceftriaxone and azithromycin and dexamethasone. She remained on room air during her hospital course. She did not receive antiviral therapy since she was out of the window. She will be discharged with cedinir and azithromycin for five more days to complete a seven day course of antibiotics. She should get a repeat chest Xray in 6 weeks. E Coli UTI: the patient was started on IV ceftriaxone. She will be discharged with cefdinir to complete a seven day course of antibiotics. Nausea/vomiting: the patient had difficulty passing gas and vomiting. She was kept NPO. Abdominal X ray showed no obstruction. Her diet was eventually advanced to a regular diet. She had bowel movements on the day of discharge. Hypokalemia: the patient's potassium was 3.1. She was given 40 meq of potassium. She should get repeat potassium in a week. Her triamterene/hydrochlorothiazide was discontinued on discharge. Consider resuming if her blood pressure starts to elevate. Pertinent Studies: Abd X ray: nonobstructive bowel gas pattern Chest X ray: minimal right lung base infiltrate Resuscitation Status: 08/02/20 23:17 Resuscitation Status Routine Resuscitation Status: FULL: Full Resuscitation - Labs Lab Results: 08/04/20 05:38 08/04/20 05:38 Abnormal Lab Results - Last 48 hrs 08/02/20 19:10: Potassium 3.4 L, Serum Total Protein 9.2 H, Globulin 4.6 H, Albumin/Globulin Ratio 1.0 L 08/02/20 19:10: Neutrophils % 40.5 L 08/02/20 19:10: Lactic Acid 2.6 H 08/02/20 19:10: D-Dimer Less than 0.27 L 08/02/20 19:44: Urine Nitrite 2+ A, Urine Bacteria 4+ A 08/03/20 05:59: Potassium 3.4 L 08/03/20 05:59: WBC 4.4 L, Neutrophils % 77.7 H, Lymphocytes % 20.4 L, Lymphocytes # 0.9 L, Monocytes # 0.1 L 08/04/20 05:38: Potassium 3.1 L, Chloride 108 H 08/04/20 05:38: RBC 3.95 L, Hgb 11.2 L, Hct 33.9 L Microbiology - Entire Visit 08/02/20 19:44 Urine voided Urine Culture - Final Escherichia coli 08/02/20 19:26 Venous blood - Left Arm Blood Culture - Preliminary NO GROWTH AT 48 HOURS 08/02/20 19:10 Venous blood - Right Arm Blood Culture - Preliminary NO GROWTH AT 48 HOURS 08/02/20 19:44 Nasal swab Influenza Types A,B Direct EIA - Final - Physical Exam Vitals: Vital Signs (12 hours) Temp Pulse Resp BP Pulse Ox 08/04/20 09:00 98.3 F 67 16 137/70 100 08/04/20 08:00 100 08/04/20 03:59 98 F 77 16 98/69 97 Weight Admit Weight 198 lb 9.6 oz Weight 198 lb 9.6 oz Physical Exam: The patient was seen and examined on the day of discharge. General Appearance: NAD, awake alert. Morbidly obese Eye: PERRL, anicteric sclera ENT: normocephalic atraumatic, no oropharyngeal lesions Neck: no JVD Heart: RRR, no murmur, no gallops, no rubs Respiratory: CTAB, no wheezes, no rales, no ronchi Gastrointestinal: soft, non-tender, non-distended, normal bowel sounds Extremities: no cyanosis, no clubbing, no edema Skin: normal turgor, no lesions, no rashes Neurological: cranial nerve grossly intact, normal sensation to touch, no focal deficits, no new deficit Musculoskeletal: normal tone, normal strength, no muscle wasting Psychiatric: normal affect, normal behavior, A&O x 3 Problem - Discharge Plan Plan of Treatment: The patient was diagnosed with pneumonia. Please repeat chest Xray in 6 weeks. Repeat potassium level in a week. Her triamterene/HCTZ was discontinued. Consider resuming if her blood pressure remains uncontrolled on amlodipine. - Time spent with Patient (mins): 35 Plan - Discharge Medications Prescriptions: Cefdinir 300 mg PO Q12HR #10 capsule Azithromycin 250 mg PO DAILY #3 tablet Home Medications: Medication Instructions Recorded Confirmed Type Butalbital/Acetaminophen/Caffe 1 tab PO ASDIR PRN 10/07/18 08/03/20 History [Fioricet] Cholecalciferol (Vitamin D3) 1 tab PO DAILY 10/07/18 08/03/20 History [Vitamin D3] Cyclobenzaprine [Flexeril] 10 mg PO HS 10/07/18 08/03/20 History DULoxetine HCl 1 tab PO HS 10/07/18 08/03/20 History Fluticasone Propionate 1 - 2 spray INH DAILY 10/07/18 08/03/20 History Pregabalin [Lyrica] 1 tab PO HS 10/07/18 08/03/20 History Amlodipine [Norvasc] 10 mg PO DAILY 08/03/20 08/03/20 History busPIRone HCl [Buspirone HCl] 15 mg PO QAM 08/03/20 08/03/20 History Azithromycin 250 mg PO DAILY #3 tablet 08/04/20 Rx Cefdinir 300 mg PO Q12HR #10 capsule 08/04/20 Rx Allergies: codeine Allergy (Verified 01/27/20 17:01) chest pain Iodinated Contrast Media [Iodinated Contrast- Oral and IV Dye] Allergy (Verified 01/27/20 17:01) roof of mouth itches peanut Allergy (Verified 01/27/20 17:01) Rash - Discharge Instructions Activity:: Activity as Tolerated Nourishment:: Heart Healthy Diet - Follow up Plan Referrals: Crystal Nelson MD [Primary Care Provider] - Disposition: HOME Quality - Care Measures CORE MEASURES:: N/A
[2020-08-04 17:02] VITALS: BP 116/71; TEMP 98.3
[2020-08-04] MEDS ORDERED: Cefdinir 300 MG CAP PO SCH (21:00)
[2020-08-05] MEDS ORDERED: Dexamethasone 4 MG TAB PO SCH (08:00)
--- NOTE | 2020-08-07 12:45 | PQF ---
CLINICAL DOCUMENTATION CLARIFICATION FORM: Dear Dr. Cisneros [facility] [place] Date: 08.07.20 Please exercise your independent, professional judgment in responding to the clarification form. Clinical indicators are provided on the bottom of this form for your review. [ ] Sepsis due to UTI [ ] Sepsis due to COVID-19 Pneumonia [ ] COVID-19 Pneumonia and UTI no sepsis [ ] Cannot rule out sepsis diagnosis [ X ] Other diagnosis Dehydration secondary to UTI _ [ ] Unable to determine In addition, please specify: Present on Admission (POA): [X ] Yes [ ] No [ ] Unable to determine For continuity of documentation, please document condition throughout progress notes and discharge summary. Thank You. To be completed by CDI/Coding staff for physician review: CLINICAL INDICATORS - SIGNS / SYMPTOMS / LABS / RESULTS AND LOCATION IN MR ED: COVID-19 Pneumonitis; Dyspnea; UTI VITAL SIGNS: P 92-115; RR 18-22; T 98.1 oral; O2 Sat 96-100% on RA 11.11 H&P (Baidoo): *complaint of progressive SOB and fatigue denied any fever endorsed nonproductive cough and body aches. *noted to be tachycardic; tolerating room air w/ good oxygen saturation *Pneumonia d/t COVID-19 Virus; HTN; UTI 11.12 PN (Denise): * hypoactive bowel sounds * Sepsis d/t UTI *possible viral gastroenteritis/COVID vs from UTI *COVID + RIGHT lung PNA *Leukopenia; lactic acidosis 11.13 DC Summary (Denise): PNA; E. Coli UTI; N/V; hypokalemia; RISK FACTORS / RESULTS AND LOCATION IN MR ED: DX with COVID last week now having worsening SOB TREATMENTS / RESULTS AND LOCATION IN MR 11.11 H&P ([facility]): placed under observation; treat COVID Pneumonia w/ IV steroids, vitamin supplementation; UTI w/ IV Rocephin 11.12 PN (Denise): changed to Inpatient since not tolerating oral diet MAR: IV Zithromax; Rocephin; 08.02 - 08.03 CDS Signature: Jennifer Castro RN, CCDS Phone #:[phone] [email or web address] This is a permanent part of the Medical Record [facility]
--- NOTE | 2020-08-08 06:55 | EKG ---
Test Reason : Blood Pressure : / mmHG Vent. Rate : 090 BPM Atrial Rate : 090 BPM P-R Int : 170 ms QRS Dur : 086 ms QT Int : 362 ms P-R-T Axes : 042 035 020 degrees QTc Int : 442 ms Normal sinus rhythm Nonspecific T wave abnormality Abnormal ECG When compared with ECG of 02-AUG-2020 19:27, (Unconfirmed) Nonspecific T wave abnormality, worse in Anterior leads Confirmed by ERMA DE MD ([id number]) on 08/08/2020 6:55:13 AM Referred By: ANGEL Confirmed By:ERMA DE MD
== END 2020-08-04 17:12 | disposition home or self-care (01) | DRG 177 ==
LOC: ERS 18:18 → OBSVTOIN 22:37 → T4-B 22:37
PROVIDERS: ADMIT Internal Medicine; ATTEND Internal Medicine
DX: U07.1 COVID-19 (principal); J12.89 Other viral pneumonia; N39.0 Urinary tract infection, site not specified; I10 Essential (primary) hypertension; F41.9 Anxiety disorder, unspecified; E87.6 Hypokalemia; D72.819 Decreased white blood cell count, unspecified; M79.7 Fibromyalgia; Z90.710 Acquired absence of both cervix and uterus; Z88.6 Allergy status to analgesic agent; Z91.010 Allergy to peanuts; Z79.899 Other long term (current) drug therapy; E86.0 Dehydration; B96.20 Unspecified Escherichia coli [E. coli] as the cause of diseases classified elsewhere; Z90.89 Acquired absence of other organs; Z98.890 Other specified postprocedural states
CPT/HCPCS: 36415; 71045; 74018; 80048; 80053; 81003; 81015; 83605; 83690; 84484; 85025; 85027; 85379; 87040; 87077; 87086; 87186; 87804; 93005; 93010; 96365; 96367; 96372; 96375; 96376; C9113; G0378; J0456; J0696; J1100; J1650; J2405; J3490; J7050; J8540

== ENCOUNTER 2020-08-23 07:06 | Day surgery (SDC) | payer OTHER ==
[2020-08-22 15:18] VITALS: BMI 34.5
[2020-08-23] MEDS ORDERED: diphenhydrAMINE 25 MG CAP ONE (07:25)
[2020-08-23 08:28] VITALS: BP 151/88; TEMP 96.6
--- NOTE | 2020-08-23 09:23 | CT ---
CT myelogram of the lumbar spine: 08/23/2020 HISTORY: Bilateral lower extremity radiculopathy, left foot paresthesias TECHNIQUE: Following the intrathecal administration of Isovue-200, axial CT imaging at 2.5 mm interva ls through the lumbar spine with coronal and sagittal reformatted imaging FINDINGS: There is a left-sided pedicle screw at L5 and S1 with a vertically oriented interlocking ro d. There is an intervertebral disc device at L5-S1. The patient appears status post left L5-S1 facetectomy. No evidence for hardware failure is noted on this examination. There is mild anterolisthesis at L5-S1 measuring in the 3-4 mm range. The conus medullaris terminates at the L1 level. T12-L1: No central canal or neural foraminal stenosis. L1-2: No central canal or neural foraminal stenosis. L2-3: No central canal or neural foraminal stenosis. L3-4: Mild ligamentum flavum hypertrophy bilaterally with no significant central canal or neural fora arnulfo stenosis. L4-5: Bilateral mild facet hypertrophy is noted with a mild degree of bilateral ligamentum flavum hyp ertrophy and mild bilateral neural foraminal stenosis. No significant central canal stenosis. L5-S1: Streak artifact from postoperative hardware limits assessment of the neural foramen on the lef t. Probable mild bilateral neural foraminal stenosis. Mild disc bulge with a small left paracentral disc protrusion present causing a mild degree of left-s ided central canal/lateral recess stenosis. No acute osseous abnormality. No worrisome lytic or blastic bone lesion. Limited assessment of the retroperitoneal structures demonstrates no acute findings. There is an inco mpletely imaged dorsal column stimulating device. IMPRESSION: Postoperative and mild degenerative change within the lumbar spine as detailed above.
--- NOTE | 2020-08-23 09:27 | RAD ---
Lumbar spine myelogram: 08/23/2020 COMPARISON: None HISTORY: Back pain, radiculopathy Technique/findings: Informed consent for myelogram obtained prior to the procedure. Physical Aerodynamicist imaging dem onstrates dorsal column stimulator, leads incompletely imaged on this exam, extending into the thoracic region. Cholecystectomy clips are present. There is a intervertebral disc device at the L5-S 1 level and there are left-sided L5 and S1 pedicle screws with vertically oriented interlocking rods. Minimal anterolisthesis at L5-S1 noted measuring in the 3-4 mm range. No acute osseous abnormality is seen. The patient was placed on the fluoroscopic table in the oblique prone position and skin overlying the lower lumbar spine was prepped and draped in normal sterile fashion. Skin was anesthetized at the L3-4 level. With intermittent fluoroscopic guidance, a 22-gauge spinal n eedle was advanced into the thecal sac and removal of the stylet yields clear cerebrospinal fluid. Approximately 12 cc of Isovue-200 was injected, outlining nerve roots of the cauda equina and filling the thecal sac. Needle was removed. Patient tolerated the procedure well. Patient was sent to the CT scanner for CT m yelogram of the lumbar spine. Exposure data: 1.3 minutes of fluoroscopic time 659.8 mcg/sq m IMPRESSION: Successful lumbar spine myelogram of prior to CT myelogram of the lumbar spine as detaile d above.
[2020-08-23] MEDS ORDERED: Iopamidol-M 200 41% 20 ML VIAL ONE (14:39)
== END 2020-08-23 09:44 | disposition home or self-care (01) ==
LOC: RAD 07:06
PROVIDERS: ATTEND Neurological Surgery
PROC: B01B1ZZ Fluoroscopy of Spinal Cord using Low Osmolar Contrast (ICD-10-PCS; principal; 2020-08-23)
DX: M54.16 Radiculopathy, lumbar region (principal); M48.061 Spinal stenosis, lumbar region without neurogenic claudication; I10 Essential (primary) hypertension; K21.9 Gastro-esophageal reflux disease without esophagitis; F32.9 Major depressive disorder, single episode, unspecified; Z79.899 Other long term (current) drug therapy; Z88.2 Allergy status to sulfonamides; Z88.5 Allergy status to narcotic agent; Z91.010 Allergy to peanuts; Z91.041 Radiographic dye allergy status
CPT/HCPCS: 62304; 72132; Q0163; Q9966

== ENCOUNTER 2021-02-28 09:04 | Outpatient (CLI) | payer OTHER | END 2021-02-28 09:05 | disposition home or self-care (01) | LOC: BICRAD 09:04 | PROVIDERS: ATTEND Nurse Practitioner Family | DX: M25.551 Pain in right hip (principal) ==

== ENCOUNTER 2021-03-06 13:29 | Outpatient (CLI) | payer OTHER | END 2021-03-06 13:30 | disposition home or self-care (01) | LOC: MRI 13:29 | PROVIDERS: ATTEND Nurse Practitioner Family | DX: M50.10 Cervical disc disorder with radiculopathy, unspecified cervical region (principal); M25.551 Pain in right hip | CPT/HCPCS: 72141 ==

== ENCOUNTER 2021-07-30 10:21 | Outpatient (CLI) | payer OTHER ==
[2021-07-30 12:18] LABS: #Basophils 0.1 10x3/uL (0.0-0.2); #Eosinphils 0.1 10x3/uL (0.0-0.5); #Monocytes 0.3 10x3/uL (0.0-1.1); #Neutrophils 4.3 10x3/uL (1.5-8.4); %Basophils 0.7 % (0.0-2.0); %Eosinophils 0.9 % (0.0-6.0); %Lymphocytes 36.3 % (18.0-47.0); %Monocytes 4.2 % (0.0-10.0); %Neutrophils 57.6 % (40.0-75.0); Hemoglobin 11.1 g/dL (12.0-15.5); Mean Corpuscular HGB CONC 31.3 g/dL (32.0-36.0); Mean Corpuscular Hemoglobin 26.9 pg (27.0-33.0); Mean Corpuscular Volume 86.2 fl (81.6-98.3); Mean Platelet Volume 11.7 fl (7.4-10.4); Platelet Count 272 10x3/uL (150-450); RBC Distribution Width 14.6 % (11.5-14.5); Red Blood Cell (RBC) Count 4.12 10x6/uL (3.90-5.03); White Blood Cell (WBC) Count 7.4 10x3/uL (3.5-10.5)
[2021-07-30 12:31] LABS: Anion Gap 14 mmol/L (10-20); BUN (Urea Nitrogen) 10 mg/dL (9.8-20.1); Calc. Creatinine Clearance 0 mL/min (70-130); Calcium 9.8 mg/dL (7.8-10.44); Carbon Dioxide 26 mmol/L (22-29); Chloride 105 mmol/L (98-107); Glucose 120 mg/dL (70-105); Potassium 3.6 mmol/L (3.5-5.1); Sodium 141 mmol/L (136-145)
[2021-07-30 20:27] LABS: SARS-CoV-2 PCR by NAA Not Detected (NotDetected)
== END 2021-07-30 10:22 | disposition home or self-care (01) ==
LOC: LABBT 10:21
PROVIDERS: ATTEND Orthopaedic Surgery
DX: Z01.818 Encounter for other preprocedural examination (principal); M75.102 Unspecified rotator cuff tear or rupture of left shoulder, not specified as traumatic; Z20.822 Contact with and (suspected) exposure to COVID-19
CPT/HCPCS: 80048; 85025; 93005; 93010; U0003; U0005

== ENCOUNTER 2021-08-02 05:26 | Day surgery (SDC) | payer OTHER ==
[2021-07-31 14:11] VITALS: BMI 33.6
[2021-08-02] MEDS ORDERED: Fentanyl 100 MCG/2 ML VIAL ONE ×2 (06:13→06:51)
[2021-08-02] MEDS ORDERED: HYDROmorphone 0.5 MG/0.5 ML SYRINGE ONE (06:13)
[2021-08-02] MEDS ORDERED: Phenylephrine 10 MG/ML VIAL ONE (06:14)
[2021-08-02] MEDS ORDERED: Midazolam HCl 2 mg/2 ml Vial ONE ×3 (06:51→08:02)
[2021-08-02] MEDS ORDERED: Ropivacaine 0.5% HCl/PF (150 MG/30 ML VIAL) ONE (07:36)
[2021-08-02] MEDS ORDERED: Rocuronium Bromide 10 MG/ML (10ML VIAL) ONE (07:36)
[2021-08-02] MEDS ORDERED: PROPOFOL 200 MG/20 ML VIAL ONE (07:36)
[2021-08-02] MEDS ORDERED: Dexamethasone 20 MG/5 ML VIAL ONE (07:36)
[2021-08-02] MEDS ORDERED: Glycopyrrolate 0.2 MG/ML 5 ML SYRINGE ONE (07:36)
[2021-08-02] MEDS ORDERED: Ondansetron PF 4 MG/2 ML Vial ONE (07:36)
[2021-08-02] MEDS ORDERED: PHENYLEPHRINE-NS 100 MCG/ML 10 ML SYRINGE ONE (07:36)
[2021-08-02] MEDS ORDERED: Lidocaine 1% w/Epinephrine 1:100K 20 ML VIAL ONE (08:10)
[2021-08-02] MEDS ORDERED: Zolpidem Tartrate 5 MG TAB PO PRN (09:00)
[2021-08-02] MEDS ORDERED: Ropivacaine 0.2% 550 ML 550 ML NERVE BLCK SCH (09:00)
[2021-08-02] MEDS ORDERED: Promethazine HCl 25 MG/ML VIAL IM PRN (09:00)
[2021-08-02] MEDS ORDERED: Ondansetron PF 4 MG/2 ML Vial IVP PRN (09:00)
[2021-08-02] MEDS ORDERED: Ketorolac Tromethamine 30 MG/ML VIAL ONE (09:35)
== END 2021-08-02 12:10 | disposition home or self-care (01) ==
LOC: SDC 05:26
PROVIDERS: ATTEND Orthopaedic Surgery
PROC: 0LQ24ZZ Repair Left Shoulder Tendon, Percutaneous Endoscopic Approach (ICD-10-PCS; principal; 2021-08-02)
PROC: 3E0T3BZ Introduction of Anesthetic Agent into Peripheral Nerves and Plexi, Percutaneous Approach (ICD-10-PCS; principal; 2021-08-02)
DX: M75.112 Incomplete rotator cuff tear or rupture of left shoulder, not specified as traumatic (principal); S43.432A Superior glenoid labrum lesion of left shoulder, initial encounter; M24.112 Other articular cartilage disorders, left shoulder; M75.22 Bicipital tendinitis, left shoulder; I10 Essential (primary) hypertension; G47.00 Insomnia, unspecified; M79.7 Fibromyalgia; K21.9 Gastro-esophageal reflux disease without esophagitis; G25.81 Restless legs syndrome; Z79.899 Other long term (current) drug therapy; Z88.1 Allergy status to other antibiotic agents; Z88.2 Allergy status to sulfonamides; Z88.5 Allergy status to narcotic agent; Z91.010 Allergy to peanuts; Z91.041 Radiographic dye allergy status
CPT/HCPCS: A4306; C1713; J0690; J1100; J1170; J1885; J2250; J2370; J2405; J2704; J2795; J3010

== ENCOUNTER 2021-10-11 11:51 | Outpatient (CLI) | payer OTHER | END 2021-10-11 11:52 | disposition home or self-care (01) | LOC: BICMAMMO 11:51 | PROVIDERS: ATTEND Family Medicine | DX: Z12.31 Encounter for screening mammogram for malignant neoplasm of breast (principal); Z80.3 Family history of malignant neoplasm of breast | CPT/HCPCS: 77063; 77067 ==

== ENCOUNTER 2022-01-30 08:55 | Outpatient (CLI) | payer OTHER | END 2022-01-30 08:56 | disposition home or self-care (01) | LOC: MRI 08:55 | PROVIDERS: ATTEND Orthopaedic Surgery | DX: M77.01 Medial epicondylitis, right elbow (principal); M25.421 Effusion, right elbow; M25.821 Other specified joint disorders, right elbow ==

== ENCOUNTER 2022-04-01 08:30 | Outpatient (CLI) | payer OTHER | END 2022-04-01 08:31 | disposition home or self-care (01) | LOC: BICRAD 08:30 | PROVIDERS: ATTEND Specialist | DX: M25.552 Pain in left hip (principal); M16.12 Unilateral primary osteoarthritis, left hip ==

== ENCOUNTER 2022-08-23 07:29 | Day surgery (SDC) | payer OTHER ==
[2022-08-21 09:28] VITALS: BMI 34.7
[~2022-08-23 07:29] MED LIST: FLU VACC QS2022-23(6MOS UP)/PF 60 MCG/0.5 ML SYRINGE IM ONE
[2022-08-23 09:02] VITALS: BP 170/88; TEMP 98.2
[2022-08-23] MEDS ORDERED: Iopamidol-M 200 41% 10 ML VIAL FS ONE (10:35)
== END 2022-08-23 09:40 | disposition home or self-care (01) ==
LOC: RAD 07:29
PROVIDERS: ATTEND Neurological Surgery
PROC: B02B1ZZ Computerized Tomography (CT Scan) of Spinal Cord using Low Osmolar Contrast (ICD-10-PCS; principal; 2022-08-23)
DX: M51.16 Intervertebral disc disorders with radiculopathy, lumbar region (principal); M47.26 Other spondylosis with radiculopathy, lumbar region; M48.061 Spinal stenosis, lumbar region without neurogenic claudication; M51.27 Other intervertebral disc displacement, lumbosacral region; M51.37 Other intervertebral disc degeneration, lumbosacral region; M48.07 Spinal stenosis, lumbosacral region; I10 Essential (primary) hypertension; G89.29 Other chronic pain; M54.9 Dorsalgia, unspecified; Z79.899 Other long term (current) drug therapy; Z88.1 Allergy status to other antibiotic agents; Z88.2 Allergy status to sulfonamides; Z88.5 Allergy status to narcotic agent; Z91.018 Allergy to other foods; Z91.041 Radiographic dye allergy status; Z96.82 Presence of neurostimulator; Z98.1 Arthrodesis status
CPT/HCPCS: 62304; 72132

== ENCOUNTER 2022-11-18 07:59 | Outpatient (CLI) | payer OTHER ==
[2022-11-18 09:47] LABS: #Eosinphils 0.1 10x3/uL (0.0-0.5); #Monocytes 0.4 10x3/uL (0.0-1.1); #Neutrophils 2.8 10x3/uL (1.5-8.4); %Basophils 0.5 % (0.0-2.0); %Eosinophils 1.4 % (0.0-6.0); %Lymphocytes 43.4 % (18.0-47.0); %Monocytes 6.4 % (0.0-10.0); Hemoglobin 11.5 g/dL (12.0-15.5); Mean Corpuscular HGB CONC 31.3 g/dL (32.0-36.0); Mean Corpuscular Hemoglobin 26.9 pg (27.0-33.0); Mean Corpuscular Volume 85.7 fl (81.6-98.3); Mean Platelet Volume 11.3 fl (7.4-10.4); Platelet Count 255 10x3/uL (150-450); RBC Distribution Width 14.6 % (11.5-14.5); Red Blood Cell (RBC) Count 4.28 10x6/uL (3.90-5.03); White Blood Cell (WBC) Count 5.7 10x3/uL (3.5-10.5)
[2022-11-18 10:10] LABS: Anion Gap 13 mmol/L (10-20); BUN (Urea Nitrogen) 15 mg/dL (9.8-20.1); Calc. Creatinine Clearance 0 mL/min (70-130); Calcium 9.9 mg/dL (7.8-10.44); Carbon Dioxide 28 mmol/L (23-31); Chloride 102 mmol/L (98-107); Estimated GFR 66; Glucose 90 mg/dL (80-115); Potassium 3.3 mmol/L (3.5-5.1); Sodium 140 mmol/L (136-145)
== END 2022-11-18 08:00 | disposition home or self-care (01) ==
LOC: LABBT 07:59
PROVIDERS: ATTEND Orthopaedic Surgery
DX: Z01.812 Encounter for preprocedural laboratory examination (principal); M77.01 Medial epicondylitis, right elbow; G56.01 Carpal tunnel syndrome, right upper limb
CPT/HCPCS: 80048; 85025; 93005; 93010

== ENCOUNTER 2024-03-30 12:48 | Outpatient (CLI) | payer OTHER | END 2024-03-30 12:49 | disposition home or self-care (01) | LOC: MRI 12:48 | PROVIDERS: ATTEND Specialist | DX: S76.011A Strain of muscle, fascia and tendon of right hip, initial encounter (principal); S76.012A Strain of muscle, fascia and tendon of left hip, initial encounter; M76.02 Gluteal tendinitis, left hip; M76.01 Gluteal tendinitis, right hip; R60.9 Edema, unspecified ==